=== PATIENT | female | born 1995 | race African-American/Black ===

== ENCOUNTER 2019-03-07 03:56 | Emergency (ER) | payer OTHER ==
[~2019-03-07] VITALS: Ht 149.9 cm; Wt 44.5 kg
[2019-03-07] MEDS ORDERED: TRAMADOL 50 MG50 MG PO (04:15)
[2019-03-07] MEDS ORDERED: PENICILLIN VK500 M1 PO (04:15)
[2019-03-07] MEDS ORDERED: NAPROSYN500 MG PO (04:15)
[2019-03-07] MEDS ORDERED: PERIOGARD473 ML SWISH&SPIT (04:20)
[2019-03-07 04:41] VITALS: BP 122/81
== END 2019-03-07 04:43 | disposition home or self-care (01) ==
LOC: ER 03:56
DX: K00.6 Disturbances in tooth eruption (principal); K08.89 Other specified disorders of teeth and supporting structures

== ENCOUNTER 2021-04-22 11:20 | Emergency (ER) | payer OTHER ==
[~2021-04-22] VITALS: Ht 149.9 cm; Wt 45.4 kg
[~2021-04-22 11:20] MED LIST: NAPROSYN500 MG PO; PENICILLIN VK500 M1 PO; PERIOGARD473 ML SWISH&SPIT; TRAMADOL 50 MG50 MG PO
[2021-04-22 11:37] VITALS: BP 110/79
== END 2021-04-22 12:28 | disposition home or self-care (01) ==
LOC: ER 11:20
PROVIDERS: Nurse Practitioner Family
DX: U07.1 COVID-19 (principal); Z79.899 Other long term (current) drug therapy